=== PATIENT | female | born 1985 | race Caucasian/White ===

== ENCOUNTER 2018-04-23 08:40 | Emergency (ER) | payer OTHER ==
[~2018-04-23] VITALS: Ht 160 cm; Wt 72.6 kg
[2018-04-23] MEDS ORDERED: DIVA500T2 PO (08:52)
[2018-04-23] MEDS ORDERED: DIPH25CA83 PO (08:52)
--- NOTE | 2018-04-23 09:04 | NUR ---
PT IS IN THE ROOM #2A. DR ADLER EVALUATED THE PT.
[2018-04-23] MEDS ORDERED: HYDROCODONE/APAP 5-325MG TABLET ONE (09:09)
[2018-04-23] MEDS ORDERED: HYDROCODONE/APAP 5-325MG TABLET PO ONE (09:15)
[2018-04-23] MEDS ORDERED: NEOMY/BACITRA/POLYMYXIN B OINT UD PACKET TP ONE (09:30)
--- NOTE | 2018-04-23 09:57 | NUR ---
PT WAS D/C'd TO HOME. D/C INSTRUCTIONS GIVEN TO THE PT.
[2018-04-23 10:00] VITALS: BP 123/81
== END 2018-04-23 10:01 | disposition home or self-care (01) ==
LOC: ER 08:40
DX: T23.101A Burn of first degree of right hand, unspecified site, initial encounter (principal); Z79.899 Other long term (current) drug therapy; X10.0XXA Contact with hot drinks, initial encounter; Y93.89 Activity, other specified; Y92.89 Other specified places as the place of occurrence of the external cause; Y99.8 Other external cause status
CPT/HCPCS: 16020; A4663